=== PATIENT | female | born 1995 | race Caucasian/White ===

== ENCOUNTER 2017-05-13 22:31 | Emergency (ER) | payer MEDICAID, OTHER ==
[2017-05-14] MEDS ORDERED: ACETAMINOPHEN 325 MG TABLET PO ONE (00:18)
--- NOTE | 2017-05-14 00:20 | ER Document Report ---
ED Medical Screen (RME) - General Chief Complaint: OB Problem (<20wks) Stated Complaint: ABDOMINAL PAIN POSSIBLE Time Seen by Provider: 05/14/17 00:18 Mode of Arrival: Ambulatory Information source: Patient Notes: Patient presents complaining of cramping to the left lower quadrant area for the past several days. Patient denies any vaginal bleeding or spotting. Patient does complain of some urinary frequency but denies any dysuria. Patient additionally complains of headache pain. I have greeted and performed a rapid initial assessment of this patient. A comprehensive ED assessment and evaluation of the patient, analysis of test results and completion of the medical decision making process will be conducted by additional ED providers. TRAVEL OUTSIDE OF THE [place] IN LAST 30 DAYS: No - Related Data Allergies/Adverse Reactions: No Known Allergies Allergy (Verified 05/13/17 22:32) Past Medical History Neurological Medical History: Reports: Hx Migraine Renal/ Medical History: Reports: Hx Kidney Stones, Hx Ovarian Cysts, Hx Pelvic Inflammatory Disease. Denies: Hx Peritoneal Dialysis Psychiatric Medical History: Reports: Hx Attention Deficit Hyperactivity Disorder, Hx Bipolar Disorder, Hx Depression Past Surgical History: Reports: Hx Oral Surgery - Immunizations Immunizations up to date: Yes Hx Diphtheria, Pertussis, Tetanus Vaccination: Yes Physical Exam - Vital signs Vitals: Temp Pulse Resp BP Pulse Ox 98.7 F 77 20 115/61 98 05/13/17 22:47 05/13/17 22:47 05/13/17 22:47 05/13/17 22:47 05/13/17 22:47 - Abdominal Inspection: Normal Tenderness: Tender - Left lower pelvic tenderness Course - Vital Signs Vital signs: Temp Pulse Resp BP Pulse Ox 98.7 F 77 20 115/61 98 05/13/17 22:47 05/13/17 22:47 05/13/17 22:47 05/13/17 22:47 05/13/17 22:47
--- NOTE | 2017-05-14 00:40 | ER Document Report ---
ED General - General Chief Complaint: OB Problem (<20wks) Stated Complaint: ABDOMINAL PAIN POSSIBLE Time Seen by Provider: 05/14/17 00:18 Mode of Arrival: Ambulatory Notes: Patient is a 22-year-old female presents emergency department with a chief complaint of and headache with left lower abdominal pain that has been on and off for the past couple of days. She describes her pelvic pain is in on and off intermittent cramping/discomfort. She denies any alleviating or aggravating factors. She denies any vaginal pain, discharge. States she only has one sexual partner which is her . Patient states that she has taken 6 test at home and they have all been negative. She states this is her first . She states that her last menstrual period was in March and she had some weird spotting in April. Otherwise she denies any vision changes, light or sound sensitivity. She has not taken anything for her headache. She denies any nausea, vomiting, abdominal pain, chest pain, shortness of breath, cough, swelling, dizziness, diarrhea, constipation, dysuria , pyuria, hematuria. TRAVEL OUTSIDE OF THE [place] IN LAST 30 DAYS: No - Related Data Allergies/Adverse Reactions: No Known Allergies Allergy (Verified 05/13/17 22:32) Past Medical History - General Information source: Patient - Social History Smoking Status: Current Every Day Smoker Family History: None Patient has suicidal ideation: No Patient has homicidal ideation: No Neurological Medical History: Reports: Hx Migraine Renal/ Medical History: Reports: Hx Kidney Stones, Hx Ovarian Cysts, Hx Pelvic Inflammatory Disease. Denies: Hx Peritoneal Dialysis Psychiatric Medical History: Reports: Hx Attention Deficit Hyperactivity Disorder, Hx Bipolar Disorder, Hx Depression Past Surgical History: Reports: Hx Oral Surgery - Immunizations Immunizations up to date: Yes Hx Diphtheria, Pertussis, Tetanus Vaccination: Yes Review of Systems - Review of Systems Constitutional: No symptoms reported Cardiovascular: No symptoms reported Respiratory: No symptoms reported Gastrointestinal: See HPI Genitourinary: See HPI Musculoskeletal: No symptoms reported -: Yes All other systems reviewed and negative Physical Exam - Vital signs Vitals: Temp Pulse Resp BP Pulse Ox 98.7 F 77 20 115/61 98 05/13/17 22:47 05/13/17 22:47 05/13/17 22:47 05/13/17 22:47 05/13/17 22:47 - Notes Notes: PHYSICAL EXAM GENERAL: Alert, interacts well. HEAD: Normocephalic, atraumatic. EYES: Pupils equal, round, and reactive to light. Extraocular movements intact. ENT: Oral mucosa moist, tongue midline. NECK: Full range of motion. Supple. Trachea midline. LUNGS: Clear to auscultation bilaterally, no wheezes, rales, or rhonchi. No respiratory distress. HEART: Regular rate and rhythm. No murmurs, gallops, or rubs. ABDOMEN: Soft, nondistended, nontender. No guarding, rebound, or rigidity.. Bowel sounds present in all 4 quadrants. Female exam deferred EXTREMITIES: Moves all 4 extremities spontaneously. No edema, radial and dorsalis pedis pulses 2/4 bilaterally. No cyanosis. NEUROLOGICAL: Alert and oriented x4. Face symmetric. Tongue protrudes midline. Extraocular motions intact. Pupils are 2 mm and equally reactive. Normal speech, normal gait. 5 out of 5 strength in both the distal and proximal upper and lower extremities bilaterally. Sensation is grossly intact throughout. PSYCH: Normal affect, normal mood. SKIN: Warm, dry, normal turgor. No rashes or lesions noted. Course - Re-evaluation Re-evalutation: 05/14/17 03:49 Patient is a 22-year-old female who is hemodynamically stable, headache has resolved after dose of Tylenol. Repeat abdominal exam without any focal abdominal or pelvic tenderness. Patient states she is completely pain-free and her abdominal pain/cramping is gone. No acute distress and afebrile CBC stable without any evidence of leukocytosis or anemia. CMP is stable without any evidence of electrolyte abnormalities. Patient's beta-hCG in the 500s. Urine with evidence of mild urinary tract infection culture has been sent and patient will be treated prophylactically. Ultrasound does not show any evidence of intrauterine, ectopic , any adnexal free fluid. Based on beta-hCG is low as it is and non-confirmatory ultrasound results will have patient follow- up in 48 hours for repeat blood work and ultrasound. Patient given outpatient lab forms for this. Otherwise discussed with her to call [facility] this morning to discuss her visit today and see if they want to follow-up with her later today or on Wednesday. Patient agrees with plan and stable for discharge home - Vital Signs Vital signs: Temp Pulse Resp BP Pulse Ox 98.9 F 88 20 115/77 96 05/14/17 04:10 05/14/17 04:10 05/13/17 22:47 05/14/17 04:10 05/14/17 04:10 - Laboratory Result Diagrams: 05/14/17 00:25 05/14/17 00:25 Laboratory results interpreted by me: 05/13/17 05/14/17 05/14/17 23:36 00:25 00:25 WBC 12.5 H Glucose 69 L Beta HCG, Quant 581.20 H Urine Urobilinogen 2.0 H Ur Leukocyte Esterase TRACE H - Diagnostic Test Radiology reviewed: Reports reviewed Discharge - Discharge Clinical Impression: Pelvic pain affecting Qualifiers: Trimester: first trimester Qualified Code(s): O26.891 - Other specified related conditions, first trimester Condition: Good Disposition: HOME, SELF-CARE Additional Instructions: : You are . care is best started as early in as possible. If you're unsure about continuing this , you should discuss this with your physician or with computer repair technician at [facility]. You should take only medications approved by your physician. Acetaminophen can safely be taken for minor pains. As a rule, medication for chronic conditions such as asthma or seizures can safely be continued. You should discuss with the physician every medicine you take. Any regular exercise program can be continued. Talk to your physician, however, before engaging in competitive or demanding sports. Alcohol, smoking, and "street drugs" are dangerous to your baby. Cocaine is especially dangerous. Don't use any illicit drugs! THREATENED MISCARRIAGE: You have been evaluated for a possible miscarriage. At this time, there is no indication that a miscarriage will occur. Most women with your symptoms will go on to have a perfectly normal baby. However, careful observation will be necessary. A miscarriage occurs when the fetus is abnormal. There is no medicine or treatment for it. You should rest in bed until the symptoms have resolved. Do not douche or have sex for at least a week, or until OK'd by the doctor. Call the doctor or return for re-examination if there is an increase in bleeding or cramping, or passage of tissue. REPEAT BLOOD TEST: At this time, it is uncertain if you have a viable . During the first three months of , the hormone produced from the placenta will steadily rise, usually doubling in value every 2 - 3 days. In order to determine if your is viable and likely be succesful, a repeat of this blood test for the hormone is recommended in 2 - 3 days. An order for this test to be done as an outpatient is being provided. After you have this repeat test done, call your doctor or call us for the results. If the value of the test is increasing as would be expected in a normal , then your is likely to be ok. However, if the value of the test is declining, it will suggest something has happened with your and it will not likely be a successful . FOLLOW-UP CARE: If you have been referred to a physician for follow-up care, call the physician s office for an appointment as you were instructed or within the next two days. If you experience worsening or a significant change in your symptoms (very heavy bleeding with large clots of blood, passage of tissue, more severe abdominal / pelvic pain or cramping, feeling faint or severe weakness, fever, etc.), notify the physician immediately or return to the Emergency Department at any time for re-evaluation. OBSTETRIC-GYNECOLOGIC (OB-BALLISTIC EXPERT) PHYSICIANS IN [place]: [facility] [address] [place] [address] [phone] Prescriptions: Nitrofurantoin/Nitrofuran Mac [Macrobid 100 mg Capsule] 1 tab PO BID #14 capsule Forms: Follow-Up Laboratory Testing, Follow-Up Radiology Testing Referrals: [facility] [Provider Group] - Follow up tomorrow (Call for an appointment)
[2017-05-14 01:00] LABS: APPEARANCE,URINE SLIGHTLY-CLOUDY; BILIRUBIN,URINE NEGATIVE (NEGATIVE); COLOR,URINE YELLOW; GLUCOSE, URINE NEGATIVE (NEGATIVE); KETONES,URINE NEGATIVE (NEGATIVE); LEUKOCYTE ESTERASE,URINE TRACE (NEGATIVE); NITRITE,URINE NEGATIVE (NEGATIVE); PROTEIN,URINE NEGATIVE (NEGATIVE); URINE SPECIFIC GRAVITY 1.016
[2017-05-14 01:06] LABS: ABSOLUTE BASOPHILS # (AUTO) 0.2 10^3/uL (0.0-0.2); ABSOLUTE EOSINOPHILS # (AUTO) 0.3 10^3/uL (0.0-0.6); ABSOLUTE LYMPHOCYTES (AUTO) 3.8 10^3/uL (0.5-4.7); ABSOLUTE MONOCYTES (AUTO) 0.9 10^3/uL (0.1-1.4); ABSOLUTE NEUT (AUTO) 7.4 10^3/uL (1.7-8.2); BASOPHILS % (AUTO) 1.2 % (0-2); HEMATOCRIT 39.6 % (36.0-47.0); HEMOGLOBIN 13.5 g/dL (12.0-15.5); LYMPHOCYTES % (AUTO) 30.4 % (13-45); MEAN CORPUSCULAR HEMOGLOBIN 29.8 pg (27.0-33.4); MEAN CORPUSCULAR HGB CONC 34.1 g/dL (32.0-36.0); MEAN CORPUSCULAR VOLUME 87 fl (80-97); MONOCYTES % (AUTO) 7.5 % (3-13); PLATELET COUNT 261 10^3/uL (150-450); RED BLOOD COUNT 4.53 10^6/uL (3.72-5.28); RED CELL DISTRIBUTION WIDTH 13.7 % (11.5-14.0); SEGMENTED NEUTROPHILS % (AUTO) 58.9 % (42-78); TOTAL CELLS COUNTED % (AUTO) 100 %; WHITE BLOOD COUNT 12.5 10^3/uL (4.0-10.5)
[2017-05-14 01:26] LABS: ALANINE AMINOTRANSFERASE 17 U/L (9-52); ALBUMIN 4.5 g/dL (3.5-5.0); ALKALINE PHOSPHATASE 56 U/L (38-126); ANION GAP 14 (5-19); ASPARTATE AMINO TRANSFERASE 18 U/L (14-36); BILIRUBIN,DIRECT 0.2 mg/dL (0.0-0.4); BILIRUBIN,TOTAL 0.3 mg/dL (0.2-1.3); BLOOD UREA NITROGEN 10 mg/dL (7-20); CALCIUM 9.8 mg/dL (8.4-10.2); CARBON DIOXIDE 23 mmol/L (22-30); CHLORIDE 105 mmol/L (98-107); GLUCOSE 69 mg/dL (75-110); POTASSIUM 3.9 mmol/L (3.6-5.0); SODIUM 141.7 mmol/L (137-145); TOTAL PROTEIN 7.4 g/dL (6.3-8.2)
--- NOTE | 2017-05-14 02:19 | RADIOLOGY REPORT (SQ) ---
EXAM DESCRIPTION: U/S OB TRANSVAGINAL W/O DOP CLINICAL HISTORY: 22 years Female, LLQ pain beta hCG pending. COMPARISON: None. TECHNIQUE: Complete first trimester obstetrical ultrasound with transvaginal imaging. FINDINGS: Uterus measures 8.9 x 5.9 x 4.7 cm. Cervix measures 2.4 cm. Endometrial thickness measures 1.7 cm. No gestational sac identified. No myometrial abnormalities. No free pelvic fluid. The right ovary measures 3.1 x 2.3 x 1.8 cm. The left ovary measures 3.7 x 2.5 x 3.0 cm. No evidence of adnexal ectopic . IMPRESSION: 1. No intrauterine identified. Differential considerations include early normal , miscarriage, or ectopic . No other sonographic evidence of ectopic . Close continued clinical, laboratory, and sonographic follow-up recommended.
[2017-05-14] MEDS ORDERED: NITROFURANTOIN MONOHYD/M-CRYST 100 MG CAPSULE PO ONE (03:48)
[2017-05-14 04:11] VITALS: BP 115/77
== END 2017-05-14 04:10 | disposition home or self-care (01) ==
LOC: ER 22:31
DX: O23.41 Unspecified infection of urinary tract in pregnancy, first trimester (principal); O26.891 Other specified pregnancy related conditions, first trimester; R51 Headache; R10.2 Pelvic and perineal pain; O99.331 Smoking (tobacco) complicating pregnancy, first trimester; Z3A.00 Weeks of gestation of pregnancy not specified; Z87.442 Personal history of urinary calculi; Z87.42 Personal history of other diseases of the female genital tract
CPT/HCPCS: 99284; 86900; 86901; 36415; 87086; 84702; 85025; 80053; 81001; 76817; J3490 ×2; J8499

== ENCOUNTER → 2017-05-16 | Outpatient (CLI) | payer MEDICAID ==
--- NOTE | 2017-05-16 06:49 | RADIOLOGY REPORT (SQ) ---
EXAM DESCRIPTION: U/S OB TRANSVAG W/DOPPLER CLINICAL HISTORY: 22 years Female, PELVIC PAIN COMPARISON: 05/14/2017 TECHNIQUE: Complete first trimester obstetrical ultrasound with transvaginal imaging. FINDINGS: Uterus measures 9.7 x 4.8 x 6.6 cm. Cervix measures 3.4 cm. Endometrial thickness measures 1.4 cm. No gestational sac identified. No myometrial abnormalities. No free pelvic fluid. The right ovary is not identified. The left ovary measures 3.8 x 2.5 x 2.5 cm. Limited color and spectral Doppler images demonstrate flow within the left ovary. No sonographic evidence of adnexal ectopic . IMPRESSION: 1. No intrauterine identified. This is unchanged from 05/14/2016. Differential considerations include early normal , miscarriage, or ectopic . No other sonographic evidence of ectopic . Close continued clinical, laboratory, and sonographic follow-up recommended. Electronically signed by: Gagan Hollingsworth 05/16/2017 5:48 AM [facility]
== END ==
LOC: LAB 05:46
PROVIDERS: ATTEND Physician Assistant Surgical
DX: O26.91 Pregnancy related conditions, unspecified, first trimester (principal); R10.2 Pelvic and perineal pain
CPT/HCPCS: 36415; 76817; 84702; 93976